=== PATIENT | male | born 1965 | race Caucasian/White ===

== ENCOUNTER 2016-11-13 18:20 | Emergency (ER) | payer OTHER ==
[2016-11-13 14:59] LABS: WBC (NOT ORDERED) (RFLEX) 0 (0-5)
[2016-11-13 15:04] LABS: BASOPHILS 0.7 %; BASOPHILS ABSOLUTE 0.06 10/3/uL (0.0-0.16); EOSINOPHILS 1.2 %; EOSINOPHILS ABSOLUTE 0.11 10/3/uL (0.0-0.53); ER CBC TAT 0 Hrs 07 Mins; HEMATOCRIT 41.9 % (40.0-51.0); HEMOGLOBIN 14.5 g/dL (13.6-17.8); IMMATURE GRANULOCYTES 0.4 %; IMMATURE GRANULOCYTES ABSOLUTE 0.04 10/3/uL (0.0-0.11); LYMPHOCYTES ABSOLUTE 3.37 10/3/uL (0.67-4.30); MEAN CORPUS HGB CONC 34.6 g/dL (32.0-36.0); MEAN CORPUSCULAR HEMOGLOB 32.4 pg (26.0-34.0); MEAN PLATELET VOLUME 9.2 fL (9.2-13.0); MONOCYTES ABSOLUTE 0.82 10/3/uL (0.21-1.20); NEUTROPHILS 51.7 %; NEUTROPHILS ABSOLUTE 4.72 10/3/uL (2.02-8.40); RBC DISTRIBUTION WIDTH 12.6 % (12.0-16.0); RED CELL COUNT 4.47 10/6/uL (4.7-6.1); WHITE BLOOD CELLS 9.1 10/3/uL (4.5-10.5)
[2016-11-13 15:06] LABS: MANUAL DIFF NO %; MEAN CORPUSCULAR VOLUME 93.7 fL (80-100); PLATELET COUNT 398 10/3/uL (150-400)
[2016-11-13 15:14] LABS: ASCORBIC ACID (UR NOT ORDER) NEG (NEG); BILIRUBIN, URINE NEGATIVE (NEG); KETONE, URINE NEGATIVE (NEG); LEUKOCYTE ESTERASE(NOT OR NEG (NEG); NITRITE (URINE) NEG (NEG)
[2016-11-13 15:17] LABS: A/G RATIO 1.1 (0.7-1.9); ALBUMIN 4.5 G/DL (3.5-5.0); ALKALINE PHOSPHATASE 62 U/L (45-117); BUN (BLOOD UREA NITROGEN) 20 MG/DL (6-23); CALCIUM, SERUM 9.6 MG/DL (8.5-10.4); CHLORIDE, SERUM 104 MMOL/L (96-112); CO2 (CARBON DIOXIDE) 24 MMOL/L (24-34); GFR AFRICAN AMERICAN 113 ML/MIN (>=60); GFR NON AFRICAN AMERICAN 98 ML/MIN (>=60); GLOBULIN 4.2 G/DL (2.5-4.1); GLUCOSE, SERUM 107 MG/DL (60-99); POTASSIUM, SERUM 4.2 MMOL/L (3.5-5.3); SGOT(AST) 17 U/L (5-40); SGPT(ALT) 31 U/L (5-65); SODIUM, SERUM 140 MMOL/L (135-148); TOTAL BILIRUBIN 0.6 MG/DL (0-1.2); TOTAL PROTEIN 8.7 G/DL (6.0-8.5)
[~2016-11-13 18:20] MED LIST: ALEVE220 MG PO; AMARYL4 PO; ASAB PO; CAT1 PO; CAT2 PO; CLARIT10 PO; GLUCOPHAGE1000 MG PO; GLUCOTRO10 PO; GLUCPH PO; INHALER INH; LISINOPRIL40 MG PO; LORT7 PO; MELATONIN5 M1 PO; NORCO1 TA1 PO; NORV25 PO; NORV5 PO; VICTOZA18 MG/3 ML SC; ZANAFLEX 4 MG TA4 MG PO
== END 2016-11-13 21:51 | disposition home or self-care (01) ==
LOC: ER 18:20
PROVIDERS: Hospitalist
DX: R51 Headache (principal); I10 Essential (primary) hypertension; E11.9 Type 2 diabetes mellitus without complications; Z88.0 Allergy status to penicillin; Z79.84 Long term (current) use of oral hypoglycemic drugs; Z79.899 Other long term (current) drug therapy
CPT/HCPCS: 70450; 80053; 81001; 82962; 83690; 84484; 85025; 96374; 96375; 99285; A9270-GY; J1170; J2405